=== PATIENT | female | born 1985 | race Caucasian/White ===

== ENCOUNTER 2017-04-07 08:26 | Outpatient (CLI) | payer OTHER | END 2017-04-07 08:27 | disposition home or self-care (01) | LOC: BICCT 08:26 | PROVIDERS: ATTEND Physical Medicine & Rehabilitation | DX: M54.5 Low back pain (principal); M54.17 Radiculopathy, lumbosacral region; N85.8 Other specified noninflammatory disorders of uterus | CPT/HCPCS: 72131 ==